=== PATIENT | female | born 1980 | race Caucasian/White ===

== ENCOUNTER 2017-01-23 07:21 | Day surgery (SDC) | payer OTHER ==
--- NOTE | ~2017-01-23 | OP ---
Record Of Operation [facility] [place] [address] [place]. [address] NAME: TAY STONE : 80 STATUS : [facility]#: [id number] AGE: 36 ADM/REG DATE : 01/23/17 MR#: [id number] REPORT SERV DATE: 01/23/17 DICTATED BY: Marcial ANDERSON DATE: 01/23/17 REPORT STATUS : Draft TRANSCRIBED BY: MODL DATE: 01/23/17 DATE OF PROCEDURE: 01/23/2017 PREOPERATIVE DIAGNOSIS: Left proximal ureteral stone, 5 mm. POSTOPERATIVE DIAGNOSIS: Left proximal ureteral stone, 5 mm. PROCEDURE: Left ureteral ESWL. SURGEON: Marcial Anderson M.D. ANESTHESIA: MAC. COMPLICATIONS: None. DRAINS: None. BRIEF HISTORY: Ms. Stone is a 36-year-old white female who presented with a left proximal ureteral stone, approximately 5 mm in size, was noted to be just above L4 on the left. We discussed management options and decided to proceed with ESWL. The risks of bleeding, infection, anesthesia, injury to adjacent organs, need for retreatment, endoscopy, etc, were all discussed. There were no unanswered questions. DESCRIPTION OF PROCEDURE: Under excellent MAC anesthesia, the patient was placed supine on the Dornier Delta II lithotripsy machine. Stone was localized at F2, and a total of 3000 shocks at a power level up to 5.0 were delivered to the stone. The patient tolerated the procedure well and will be discharged as an outpatient with the following instructions. DISCHARGE INSTRUCTIONS: 1. Home today. 2. Strain all urine and save any stone fragments. 3. Continue tamsulosin as previously prescribed. 4. Percocet 5/325 one to two p.o. every four hours p.r.n. pain, #25. JPD/SURESH Marcial Anderson M.D. / [id number] CC: Marcial Anderson M.D.
[~2017-01-23 07:21] MED LIST: FLOMAX4 PO; PCET PO; PR25 PO
[2017-01-23 08:30] LABS: ASCORBIC ACID (UR NOT ORDER) NEG (NEG); BILIRUBIN, URINE NEGATIVE (NEG); KETONE, URINE NEGATIVE (NEG); LEUKOCYTE ESTERASE(NOT OR TRACE (NEG); WBC (NOT ORDERED) (RFLEX) 1 (0-5)
[2017-01-23 08:44] LABS: BASOPHILS 0.2 %; BASOPHILS ABSOLUTE 0.02 10/3/uL (0.0-0.16); EOSINOPHILS 2.4 %; EOSINOPHILS ABSOLUTE 0.27 10/3/uL (0.0-0.53); HEMATOCRIT 40.1 % (36.0-48.0); HEMOGLOBIN 13.5 g/dL (12.0-16.0); IMMATURE GRANULOCYTES 0.2 %; IMMATURE GRANULOCYTES ABSOLUTE 0.02 10/3/uL (0.0-0.11); LYMPHOCYTES 15.4 %; LYMPHOCYTES ABSOLUTE 1.74 10/3/uL (0.67-4.30); MEAN CORPUS HGB CONC 33.7 g/dL (32.0-36.0); MEAN CORPUSCULAR HEMOGLOB 29.3 pg (26.0-34.0); MONOCYTES 11.8 %; MONOCYTES ABSOLUTE 1.33 10/3/uL (0.21-1.20); NEUTROPHILS ABSOLUTE 7.93 10/3/uL (2.02-8.40); PLATELET COUNT 309 10/3/uL (150-400); RBC DISTRIBUTION WIDTH 14.6 % (12.0-16.0); RED CELL COUNT 4.61 10/6/uL (4.0-5.6); WHITE BLOOD CELLS 11.3 10/3/uL (4.5-10.5)
[2017-01-23 08:45] LABS: MANUAL DIFF NO %
[2017-01-23 08:50] LABS: BUN (BLOOD UREA NITROGEN) 10 MG/DL (6-23); CALCIUM, SERUM 8.6 MG/DL (8.5-10.4); CHLORIDE, SERUM 108 MMOL/L (96-112); CO2 (CARBON DIOXIDE) 26 MMOL/L (24-34); CREATININE 0.77 MG/DL (0.55-1.02); GFR AFRICAN AMERICAN 115 ML/MIN (>=60); GFR NON AFRICAN AMERICAN 99 ML/MIN (>=60); GLUCOSE, SERUM 87 MG/DL (60-99); SODIUM, SERUM 142 MMOL/L (135-148)
== END 2017-01-23 11:32 | disposition home or self-care (01) ==
LOC: SDC 07:21
PROC: 0TF7XZZ Fragmentation in Left Ureter, External Approach (ICD-10-PCS; principal; 2017-01-23 09:00)
DX: N20.1 Calculus of ureter (principal); F17.210 Nicotine dependence, cigarettes, uncomplicated; Z79.2 Long term (current) use of antibiotics; Z79.899 Other long term (current) drug therapy; Z90.710 Acquired absence of both cervix and uterus; Z98.890 Other specified postprocedural states; Z83.3 Family history of diabetes mellitus; Z82.49 Family history of ischemic heart disease and other diseases of the circulatory system; Z79.891 Long term (current) use of opiate analgesic
CPT/HCPCS: 50590; 74000; 80048; 81001; 85025; J3010